=== PATIENT | female | born 1990 | race Caucasian/White ===

== ENCOUNTER 2016-12-29 20:00 | Emergency (ER) | payer BC ==
[2016-12-29] MEDS ORDERED: guaiFENesin/CODIEN 100MG-10MG* 5 ML UDC PO ONE (22:25)
--- NOTE | 2016-12-29 22:25 | UC ---
Respiratory Complaint HPI - HPI Summary HPI Summary: ONSET OF DRY COUGH, ST, CALDERON AND CHEST CONGESTION YESTERDAY. TODAY COUGH TURNED PRODUCTIVE. NO FEVER. NO N/V/D OR EAR PAIN. - History of Current Complaint Chief Complaint: UCRespiratory Stated Complaint: COUGH,CONGESTION Time Seen by Provider: 12/29/16 22:05 Hx Obtained From: Patient Hx Last Menstrual Period: 12/15 Onset/Duration: Gradual Onset, Lasting Days - 1 DAY, Still Present Timing: Constant Severity Initially: Moderate Severity Currently: Moderate Pain Intensity: 4 Pain Scale Used: 0-10 Numeric Character: Cough: Productive Aggravating Factors: Nothing Alleviating Factors: Nothing Associated Signs And Symptoms: Positive: URI, Nasal Congestion, Hoarseness, Sinus Discomfort. Negative: Dyspnea, Fever, Wheezing, Hemoptysis, Dizziness, Edema - Allergies/Home Medications Allergies/Adverse Reactions: Allergies Allergy/AdvReac Type Severity Reaction Status Date / Time Sulfur Dioxide Allergy Mild Airway Verified 12/02/15 17:39 Obstruction PMH/Surg Hx/FS Hx/Imm Hx Previously Healthy: Yes Endocrine History Of: Denies: Diabetes, Thyroid Disease Cardiovascular History Of: Denies: Cardiac Disorders, Hypertension Respiratory History Of: Denies: COPD, Asthma GI/ History Of: Denies: Ulcer - Surgical History Surgical History: None Surgery Procedure, Year, and Place: denies - Family History Known Family History: Negative: Blood Disorder - Social History Alcohol Use: Weekly Alcohol Amount: w/e use Substance Use Type: None Smoking Status (MU): Never Smoked Tobacco - Immunization History Most Recent Influenza Vaccination: fall 2015 Review of Systems Constitutional: Fatigue ENT: Sore Throat, Nasal Discharge Respiratory: Cough Cardiovascular: Negative Gastrointestinal: Negative Neurological: Headache All Other Systems Reviewed And Are Negative: Yes Physical Exam Triage Information Reviewed: Yes Appearance: Well-Appearing, No Pain Distress, Well-Nourished Vital Signs: Initial Vital Signs Temp 98.7 F 12/29/16 20:48 Pulse 100 12/29/16 20:48 Resp 18 12/29/16 20:48 BP 146/81 12/29/16 20:48 Pulse Ox 99 12/29/16 20:48 Vital Signs Reviewed: Yes Eyes: Positive: Conjunctiva Clear ENT: Positive: Hearing grossly normal, Pharynx normal, TMs normal Neck: Positive: Supple, Nontender, No Lymphadenopathy Respiratory Exam: Normal Cardiovascular Exam: Normal Abdomen Description: Positive: Soft Musculoskeletal: Positive: No Edema Neurological: Positive: Alert Psychological: Positive: Age Appropriate Behavior Skin: Negative: rashes UC Diagnostic Evaluation - Laboratory O2 Sat by Pulse Oximetry: 99 Respiratory Course/Dx - Differential Dx/Diagnosis Provider Diagnoses: ACUTE URI Discharge - Discharge Plan Condition: Stable Disposition: HOME Prescriptions: guaiFENesin/CODIEN 100MG-10MG* [Robitussin AC 100Mg-10Mg*] 5 - 10 ml PO Q6H PRN #150 ml MDD 40ML PRN Reason: Cough Patient Education Materials: Upper Respiratory Infection (ED) Referrals: Aguila Calero MD [Primary Care Provider] - If Needed Additional Instructions: ACUTE UPPER RESPIRATORY INFECTION The common cold is a benign self-limited syndrome representing a group of diseases caused by members of several families of viruses. It is the most frequent acute illness in the [place] and throughout the industrialized world. The term "common cold" refers to a mild upper respiratory viral infection involving, to variable degrees, nasal congestion and discharge ( rhinorrhea), sneezing, sore throat, cough, low-grade fever, headache, and malaise. Symptomatic therapy remains the mainstay of common cold treatment. In the absence of convincing evidence of a secondary bacterial infection, antibiotics are not effective in the treatment of the common cold and should not be prescribed. Be advised that the usual course and duration of illness is up to one and a half weeks for patients with a cold, but can last slightly longer; symptoms usually persist longer in smokers. YOUR BP IS ELEVATED TODAY. THIS MAY BE DUE TO YOUR ACUTE CONDITION. MONITOR AND FOLLOW-UP WITH YOUR PCP WITHIN 4 WEEKS IF IT HAS NOT RETURNED TO NORMAL.
[2016-12-29 22:40] VITALS: BP 112/67
== END 2016-12-29 22:39 | disposition home or self-care (01) ==
LOC: UCEAST 20:00
DX: J06.9 Acute upper respiratory infection, unspecified (principal); Z88.2 Allergy status to sulfonamides
CPT/HCPCS: 99212; A9270-GY; G0463

== ENCOUNTER 2019-01-17 15:10 | Emergency (ER) | payer BC, OTHER ==
[2019-01-17 15:36] VITALS: BP 120/80
--- NOTE | 2019-01-17 16:11 | UC ---
Minor Trauma HPI - HPI Summary HPI Summary: 28-year-old female presents for injury to her left lower leg and ankle. States she was standing on a desk at work doing some cleaning when the desk collapsed and she fell to the floor. States she fell from approximately 3 feet landing on her left side. She states she did not hit her head or lose consciousness although she was briefly lightheaded when she stood back up for a few seconds. Denies headache, visual disturbances, dizziness, neck pain, chest pain, palpitations, shortness of breath, abdominal pain, numbness, tingling, or weakness of extremities, or other injury. - History of Current Complaint Chief Complaint: UCLowerExtremity Stated Complaint: LEG INJURY Time Seen by Provider: 01/17/19 15:50 Hx Obtained From: Patient Hx Last Menstrual Period: last week Pain Intensity: 5 - Allergies/Home Medications Allergies/Adverse Reactions: Allergies Allergy/AdvReac Type Severity Reaction Status Date / Time sulfur dioxide Allergy Airway Verified 01/17/19 15:26 Obstruction PMH/Surg Hx/FS Hx/Imm Hx Previously Healthy: Yes - Denies significant PMH - Surgical History Surgical History: None Surgery Procedure, Year, and Place: denies - Family History Known Family History: Positive: Non-Contributory - Social History Occupation: Employed Full-time Lives: With Family Alcohol Use: Occasionally Alcohol Amount: w/e use Substance Use Type: None Smoking Status (MU): Never Smoked Tobacco - Immunization History Most Recent Influenza Vaccination: fall 2015 Review of Systems All Other Systems Reviewed And Are Negative: Yes Constitutional: Positive: Negative Skin: Negative: Bruising Eyes: Negative: Blurred Vision, Diplopia, Photophobia Respiratory: Negative: Shortness Of Breath, Cough Cardiovascular: Negative: Palpitations, Chest Pain Gastrointestinal: Negative: Abdominal Pain, Vomiting, Diarrhea, Nausea Genitourinary: Positive: Negative Motor: Negative: Weakness Neurovascular: Negative: Decreased Sensation Musculoskeletal: Positive: Other: - See HPI. Negative: Decreased ROM Neurological: Negative: Headache, Weakness, Paresthesia, Numbness Is Patient Immunocompromised?: No Physical Exam - Summary Physical Exam Summary: GENERAL APPEARANCE: Well developed, well nourished, alert and cooperative, and appears to be in no acute distress. HEAD: Atraumatic. normocephalic. EYES: PERRL, EOM intact. Vision is grossly intact. EARS: External auditory canals and tympanic membranes clear, hearing grossly intact. NOSE: No nasal discharge. THROAT: Pharynx normal. No tonsilar inflammation, swelling, exudate, or lesions. Uvula midline. Oral cavity normal. Teeth and gingiva in good general condition. NECK: Neck supple, non-tender. CARDIAC: Normal S1 and S2. No S3, S4 or murmurs. Rhythm is regular. There is no peripheral edema, cyanosis or pallor. Extremities are warm and well perfused. Capillary refill is less than 2 seconds. Peripheral pulses intact. LUNGS: Clear to auscultation without rales, rhonchi, wheezing or diminished breath sounds. ABDOMEN: Positive bowel sounds. Soft, nondistended, nontender. No guarding or rebound. No masses or hepatosplenomegally. MUSKULOSKELETAL: ROM intact to all extremities. Normal muscular development. BACK: Examination of the spine reveals normal gait and posture, no spinal deformity or tenderness, decreased range of motion or muscular spasm. EXTREMITIES: Mild tenderness to the lateral left ankle without erythema, ecchymosis, or gross deformity. The left lower leg was non-tender without erythema, ecchymosis, or gross deformity. Left knee and hip normal with full painless ROM. Circulation and sensation intact. NEUROLOGICAL: CN II-XII intact. Strength and sensation symmetric and intact throughout. Reflexes 2+ throughout. SKIN: Skin normal color, texture and turgor with no lesions or eruptions. Triage Information Reviewed: Yes Vital Signs: Initial Vital Signs Temp 97.2 F 01/17/19 15:27 Pulse 115 01/17/19 15:27 Resp 18 01/17/19 15:27 BP 120/80 01/17/19 15:27 Pulse Ox 98 01/17/19 15:27 Vital Signs Reviewed: Yes Diagnostics - Radiology No standard instances Radiology Interpretation Completed By: Radiologist Summary of Radiographic Findings: Order Information: TIBIA FIBULA LEFT. Accession Number: [id number]. CPT: 57064. Indication: Left lower leg injury. 2 views of the left lower leg demonstrates no fracture or dislocation. No other bone or joint abnormality is identified. IMPRESSION: No fracture of the left lower leg is noted. Order Information: ANKLE LEFT 3+VWS. Accession Number : [id number]. CPT: 17827. Indication: Left ankle pain. 3 views of left ankle demonstrate soft tissue swelling. No fracture is noted. Ankle mortise is intact. IMPRESSION: Soft tissue swelling laterally without evidence of fracture. Minor Trauma Course/Dx - Course Course Of Treatment: 28-year-old female presents for injury to her left lower leg and ankle. States she was standing on a desk at work doing some cleaning when the desk collapsed and she fell to the floor. States she fell from approximately 3 feet landing on her left side. She states she did not hit her head or lose consciousness although she was briefly lightheaded when she stood back up for a few seconds. Denies headache, visual disturbances, dizziness, neck pain, chest pain, palpitations, shortness of breath, abdominal pain, numbness, tingling, or weakness of extremities, or other injury. Afebrile. Mildly tachycardic otherwise vital signs stable. Exam revealed mild tenderness to the lateral left ankle without erythema, ecchymosis, or gross deformity, left lower leg was non-tender without erythema, ecchymosis, or gross deformity, circulation and sensation intact, neurologically intact, and otherwise unremarkable. Left Tib/ Fib and ankle x-ray showed no acute fracture. Results were reviewed with the patient. Recommending conservative treatment with [id number] analgesics and RICE. She is to follow-up with the pediatric surgery in 5-7 days if symptoms do not improve. Anticipatory guidance and warning symptoms are reviewed with the patient. Verbalizes understanding and agrees with plan of care. - Differential Dx/Diagnosis Differential Diagnosis/HQI/PQRI: Contusion(s), Fracture, Dislocation, Sprain, Strain Provider Diagnosis: Injury of left lower extremity, Injury of left ankle Discharge - Sign-Out/Discharge Documenting (check all that apply): Patient Departure All imaging exams completed and their final reports reviewed: Yes - Discharge Plan Condition: Stable Disposition: HOME Patient Education Materials: Leg Pain (ED) Referrals: Aguila Calero MD [Primary Care Provider] - Ephraim Pacheco MD [Medical Doctor] - 5 Days (If no improvement in symptoms. Call for appointment.) Additional Instructions: The x-rays performed in the clinic today showed no evidence of a fracture. Rest the leg as much as possible. Apply ice to the affected area for 15-20 minutes at least 4 times a day to help with the pain and swelling. Elevate the leg to help reduce swelling. Take acetaminophen (Tylenol) or ibuprofen (Advil, Motrin) according to directions as needed for pain. Follow up with orthopedic surgery in 5-7 days if symptoms do not improve. Seek immediate medical attention if you have severe pain not managed with pain medication, you are unable to walk or bear any weight, develop numbness or tingling in the leg, foot, or toes, or have any worsening of symptoms. - Billing Disposition and Condition Condition: STABLE Disposition: Home
== END 2019-01-17 16:50 | disposition home or self-care (01) ==
LOC: UCEAST 15:10
DX: S89.92XA Unspecified injury of left lower leg, initial encounter (principal); S99.912A Unspecified injury of left ankle, initial encounter; Z88.8 Allergy status to other drugs, medicaments and biological substances; W17.89XA Other fall from one level to another, initial encounter; Y92.9 Unspecified place or not applicable; Y99.0 Civilian activity done for income or pay
CPT/HCPCS: 99211; G0463